=== PATIENT | male | born 1985 | race Caucasian/White ===

== ENCOUNTER 2024-06-13 07:03 | Emergency (ER) | payer OTHER, SELFPAY ==
[2024-06-13 07:12] VITALS: BP 125/85
[2024-06-13 07:17] VITALS: BMI 24.3
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
--- NOTE | 2024-06-13 08:01 | EDRN ---
Shayan EL currently at the pts bedside
== END 2024-06-13 08:56 | disposition home or self-care (01) ==
LOC: EMR 07:03
PROVIDERS: EMERGENCY PHYSICIAN Student in an Organized Health Care Education/Training Program
DX: S51.811A Laceration without foreign body of right forearm, initial encounter (principal); V18.0XXA Pedal cycle driver injured in noncollision transport accident in nontraffic accident, initial encounter
CPT/HCPCS: 99284; 12034